=== PATIENT | female | born 1985 | race African-American/Black ===

== ENCOUNTER 2017-03-07 10:38 | Emergency (ER) | payer SELFPAY ==
--- NOTE | 2017-03-07 11:07 | ER Document Report ---
ED Skin Rash/Insect Bite/Abscs - General Chief Complaint: Abscess Stated Complaint: POSSIBLE INFECTION ON ARM Time Seen by Provider: 03/07/17 10:49 Mode of Arrival: Ambulatory Information source: Patient Notes: 31-year-old female presents to ED for abscess to the right arm for the last 4 days. TRAVEL OUTSIDE OF THE [place] IN LAST 30 DAYS: No - HPI Patient complains to provider of: Tender/swollen area - Swollen area that is draining last 2 days. Onset: Other - Swollen for the last 4 days draining for the last 2 days Onset/Duration: Persistent Quality of pain: Pressure Severity: Moderate Pain Level: 4 Skin Character: Abscess Quality of rash: Painful Exacerbated by: Movement Relieved by: Denies Similar symptoms previously: Yes Recently seen / treated by doctor: No - Related Data Allergies/Adverse Reactions: No Known Allergies Allergy (Verified 03/07/17 11:24) Past Medical History - General Information source: Patient - Social History Smoking Status: Current Every Day Smoker Cigarette use (# per day): Yes - 3-4 cig a day Chew tobacco use (# tins/day): No Smoking Education Provided: Yes - less than 2 min Frequency of alcohol use: Occasional Drug Abuse: None Occupation: [employer] Lives with: Family Family History: Arthritis, CVA, Malignancy, Other - MS - Past Medical History Cardiac Medical History: Reports: Hx Hypertension Pulmonary Medical History: Reports: None EENT Medical History: Reports: None Neurological Medical History: Reports: None Endocrine Medical History: Reports: None Renal/ Medical History: Reports: None Malignancy Medical History: Reports: None GI Medical History: Reports: None Musculoskeltal Medical History: Reports None Skin Medical History: Reports Hx Cellulitis, Reports Hx Eczema Psychiatric Medical History: Reports: None Traumatic Medical History: Reports: None Infectious Medical History: Reports: None Past Surgical History: Reports: Hx Section - 3, Hx Cholecystectomy, Hx Tubal Ligation - Immunizations Hx Diphtheria, Pertussis, Tetanus Vaccination: No Review of Systems - Review of Systems Constitutional: No symptoms reported EENT: No symptoms reported Cardiovascular: No symptoms reported Respiratory: No symptoms reported Gastrointestinal: No symptoms reported Genitourinary: No symptoms reported Female Genitourinary: No symptoms reported Musculoskeletal: No symptoms reported Skin: Other - Draining abscess to right arm Hematologic/Lymphatic: No symptoms reported Neurological/Psychological: No symptoms reported -: Yes All other systems reviewed and negative Physical Exam - Vital signs Vitals: Temp Pulse Resp BP Pulse Ox 99.1 F 94 18 148/92 H 100 03/07/17 10:43 03/07/17 10:43 03/07/17 10:43 03/07/17 10:43 03/07/17 10:43 Interpretation: Normal - General General appearance: Appears well, Alert - HEENT Head: Normocephalic, Atraumatic Eyes: Normal Pupils: PERRL - Respiratory Respiratory status: No respiratory distress Chest status: Nontender Breath sounds: Normal Chest palpation: Normal - Cardiovascular Rhythm: Regular Heart sounds: Normal auscultation Murmur: No - Abdominal Inspection: Normal Distension: No distension Bowel sounds: Normal Tenderness: Nontender Organomegaly: No organomegaly - Back Back: Normal, Nontender - Extremities General upper extremity: Normal inspection, Nontender, Normal color, Normal ROM , Normal temperature General lower extremity: Normal inspection, Nontender, Normal color, Normal ROM , Normal temperature, Normal weight bearing. No: Les's sign - Neurological Neuro grossly intact: Yes Cognition: Normal Orientation: AAOx4 Uma Coma Scale Eye Opening: Spontaneous [place] Coma Scale Verbal: Oriented [place] Coma Scale Motor: Obeys Commands [place] Coma Scale Total: 15 Speech: Normal Motor strength normal: LUE, RUE, LLE, RLE Sensory: Normal - Psychological Associated symptoms: Normal affect, Normal mood - Skin Skin Temperature: Warm Skin Moisture: Dry Skin Color: Normal Skin irregularity: Abscess - right upper arm Irregularity with: Swelling, Tenderness, Inflammation, Other - draining Course - Vital Signs Vital signs: Temp Pulse Resp BP Pulse Ox 99.1 F 94 18 148/92 H 100 03/07/17 10:43 03/07/17 10:43 03/07/17 10:43 03/07/17 10:43 03/07/17 10:43 Discharge - Discharge Clinical Impression: Abscess Condition: Stable Disposition: HOME, SELF-CARE Instructions: Family Physicians / Practices Additional Instructions: ABSCESS: You have an abscess (boil). This a pus-forming infection, usually due to staph. Some boils may be left to drain on their own, but most require lancing. From the time the tender lump first appears, it may be three or four days before the abscess is ready to mary. Local heat and rest help at this stage of treatment. An antibiotic may prevent spread of the infection. Once the abscess is opened, packing may be placed into it. This is done so pus is not sealed inside by premature closure of the cavity. The packing will be removed at your follow-up visit or you may be advised to remove it yourself at home. Sometimes this packing must be replaced a few times during healing. The wound will heal with surprisingly little scar. Depending on the size and location of an abscess, healing can take one to four weeks. You may shower and wash the area around the incision site two or three times a day. Antibiotics may be prescribed, but are usually not necessary after an abscess has been drained. If you develop fever, chills, worsening pain, or increasing swelling in the area, call the doctor or return immediately. ORAL NARCOTIC MEDICATION: You have been given a prescription for pain control. This medication is a narcotic. It's best taken with food, as nausea can result if taken on an empty stomach. Don't operate machinery or drive within six hours of taking this medication. Do not combine this medicine with alcohol, or with any medication which can cause sedation (such as cold tablets or sleeping pills) unless you get permission from the physician. Narcotics tend to cause constipation. If possible, drink plenty of fluids and eat a diet high in fiber and fruits. CEPHALEXIN: The antibiotic you've been prescribed is a member of the cephalosporin class. This type of antibiotic covers a wide variety of infections, including those of the skin, lungs, and urinary tract. It's useful for staph infections. This antibiotic is slightly similar to the penicillin family. In rare cases , a person who is allergic to penicillin will also be allergic to this medication. If you have had a severe allergic reaction to penicillin, and have not taken this antibiotic since that time, notify your doctor. Antibiotics which cover many germs ("broad spectrum" antibiotics) are more likely to cause diarrhea or "yeast" infections. Women prone to vaginal yeast problems may suffer an attack after taking this antibiotic. In infants, oral thrush (white spots "stuck" on the cheek) or yeast diaper rash may result. See your doctor if these problems occur. Call at once if you develop itching, hives , shortness of breath, or lightheadedness. Epsom Salt Soaks Soak the wound area in a container of warm epsom salt water. If you can't get the wound area into a bucket or dunn, use a folded towel soaked in the epsom salt solution and apply to the area. Use clean hot tap water (about the temperature of a very warm bath), mixing in about one (1) teaspoon for every pint of water. Two gallon --> 16 teaspoons Epsom Salts One gallon --> 8 teaspoons Epsom Salts Two quarts --> 4 teaspoons Epsom Salts One quart --> 2 teaspoons Epsom Salts Soak the wound for about 20 minutes while gently moving it around in the water. Repeat this four (4) times a day. FOLLOW-UP CARE: Most simple abscesses will not require a follow up visit. If you had packing placed in the abscess, remove it as instructed by the physician. If you have been referred to a physician for follow-up care, call the physicians office for an appointment as you were instructed or within the next two days. If you experience worsening or a significant change in your symptoms, return to the Emergency Department at any time for re-evaluation. Prescriptions: Cephalexin Monohydrate [Keflex 500 mg Capsule] 500 mg PO QID #20 capsule Oxycodone HCl/Acetaminophen [Percocet 5-325 mg Tablet] 1 tab PO TIDP PRN #7 tab PRN Reason: Forms: Elevated Blood Pressure, Smoking Cessation Education, Return to Work
[2017-03-07 11:08] VITALS: BP 148/92
== END 2017-03-07 11:23 | disposition home or self-care (01) ==
LOC: ER 10:38
DX: L02.413 Cutaneous abscess of right upper limb (principal); I10 Essential (primary) hypertension; F17.210 Nicotine dependence, cigarettes, uncomplicated; Z71.6 Tobacco abuse counseling
CPT/HCPCS: 99282

== ENCOUNTER 2017-11-18 10:59 | Emergency (ER) | payer SELFPAY ==
[2017-11-18] MEDS ORDERED: LIDOCAINE 4%/TETRACAINE 0.5%/EPI 0.18% 5 ML TOPICAL SOLN TOP ONE (11:58)
[2017-11-18] MEDS ORDERED: ACETAMINOPHEN 325 MG TABLET PO ONE (11:58)
[2017-11-18] MEDS ORDERED: SULFAMETHOXAZOLE/TRIMETHOPRIM 800-160 MG TABLET PO ONE (11:58)
[2017-11-18] MEDS ORDERED: IBUPROFEN 800 MG TABLET PO ONE (11:58)
--- NOTE | 2017-11-18 12:02 | ER Document Report ---
HPI - HPI Patient complains to provider of: abscess posterior neck Onset: Other - 2 days Onset/Duration: Worse Quality of pain: Throbbing Pain Level: 5 Context: 32 yo female c/o posterior neck swelling worse in 2 days. Hx non mrsa abscess on body. no fever. Associated Symptoms: None Exacerbated by: Movement Relieved by: Denies Similar symptoms previously: No Recently seen / treated by doctor: No - ROS ROS below otherwise negative: Yes Systems Reviewed and Negative: Yes All other systems reviewed and negative - REPRODUCTIVE LMP: 11/07/17 Reproductive: DENIES: : Past Medical History - General Information source: Patient - Social History Smoking Status: Current Every Day Smoker Chew tobacco use (# tins/day): No Frequency of alcohol use: Occasional Drug Abuse: None Lives with: Family Family History: Arthritis, CVA, Malignancy, Other - MS Patient has suicidal ideation: No Patient has homicidal ideation: No - Past Medical History Cardiac Medical History: Reports: Hx Hypertension Renal/ Medical History: Denies: Hx Peritoneal Dialysis Skin Medical History: Reports Hx Cellulitis, Reports Hx Eczema Past Surgical History: Reports: Hx Section - 3, Hx Cholecystectomy, Hx Tubal Ligation - Immunizations Hx Diphtheria, Pertussis, Tetanus Vaccination: No Vertical Provider Document - CONSTITUTIONAL Agree With Documented VS: Yes Exam Limitations: No Limitations General Appearance: No Apparent Distress - INFECTION CONTROL TRAVEL OUTSIDE OF THE [place] IN LAST 30 DAYS: No - HEENT HEENT: Normocephalic - NECK Neck: Supple Notes: posterior neck with fluctuant 1 cm abscess with adjacent induration and lymph nodes. No scalp rash. - RESPIRATORY Respiratory: Breath Sounds Normal, No Respiratory Distress - CARDIOVASCULAR Cardiovascular: Regular Rate, Regular Rhythm - MUSCULOSKELETAL/EXTREMETIES Musculoskeletal/Extremeties: MAEW - NEURO Level of Consciousness: Awake, Alert - DERM Integumentary: Warm, Dry, Abscess Procedures - Incision and Drainage Left Neck Time completed: 13:34 Type: Simple Anesthetic type: 1% Lidocaine mL's of anesthetic: 2 Blade size: 11 I&D procedure: Betadine prep applied, Sterile dressing applied Incision Method: Incision made by scalpel Amount/type of drainage: only blood, no pus, 4mm deep incision Adult Head Front/Back picture: 1 - fluctuant incision with surounding induration/adenopathy Discharge - Discharge Clinical Impression: I and D abscess, Adenopathy Condition: Good Disposition: HOME, SELF-CARE Instructions: Acetaminophen, Anti-Inflammatory Medication ([facility]), Lymphadenopathy ([facility]), Trimethoprim-Sulfa ([facility]), Warm Packs ([facility]) Additional Instructions: warm compress Keep the dressing on for 2 days Remove the dressing after 2 days and shower using antibacterial soap and water to clean the area then put on dry dressing Return to the emergency room if symptoms worsen or you have a fever Prescriptions: Ibuprofen [Motrin 800 mg Tablet] 800 mg PO Q8HP PRN #30 tablet PRN Reason: Sulfamethoxazole/Trimethoprim [Sulfamethoxazole-Tmp Ds Tablet] 1 each PO BID # 14 tablet Forms: Return to Work
[2017-11-18 13:57] VITALS: BP 138/74
== END 2017-11-18 13:59 | disposition home or self-care (01) ==
LOC: ER 10:59
PROC: 0H94XZZ Drainage of Neck Skin, External Approach (ICD-10-PCS; principal; 2017-11-18)
DX: L02.11 Cutaneous abscess of neck (principal); R59.0 Localized enlarged lymph nodes; F17.200 Nicotine dependence, unspecified, uncomplicated; I10 Essential (primary) hypertension; Z90.49 Acquired absence of other specified parts of digestive tract; Z98.51 Tubal ligation status
CPT/HCPCS: 99283; 10060; J3490

== ENCOUNTER 2017-11-22 07:22 | Day surgery (SDC) | payer SELFPAY ==
[2017-11-22] MEDS ORDERED: VANCOMYCIN HCL INJ 1000 MG VIAL IV ONE (07:41)
--- NOTE | 2017-11-22 07:46 | ER Document Report ---
ED General - General Chief Complaint: Abscess Stated Complaint: POSSIBLE ABSCESS Time Seen by Provider: 11/22/17 07:41 Notes: 32-year-old female presents with posterior neck pain, severe limiting motion associated with swelling. She was seen here couple days ago had an incision and drainage with drain fell out, and she states the swelling is worse now. Left lateral neck pain as well. Denies fever chills. TRAVEL OUTSIDE OF THE [place] IN LAST 30 DAYS: No - Related Data Allergies/Adverse Reactions: No Known Allergies Allergy (Verified 11/22/17 07:22) Past Medical History - Social History Smoking Status: Current Every Day Smoker Family History: Arthritis, CVA, Malignancy, Other - MS - Past Medical History Cardiac Medical History: Reports: Hx Hypertension Endocrine Medical History: Denies: Hx Diabetes Mellitus Type 1, Hx Diabetes Mellitus Type 2 Renal/ Medical History: Denies: Hx Peritoneal Dialysis Skin Medical History: Reports Hx Cellulitis, Reports Hx Eczema Past Surgical History: Reports: Hx Section - 3, Hx Cholecystectomy, Hx Tubal Ligation - Immunizations Hx Diphtheria, Pertussis, Tetanus Vaccination: No Review of Systems - Review of Systems Notes: REVIEW OF SYSTEMS GEN: Denies fever, chills, weight loss ENT: Denies sore throat, nasal discharge, ear pain EYES: Denies blurry vision, eye pain, discharge CV: Denies chest pain, palpitations, edema RESP: Denies cough, shortness of breath, wheezing GI: Denies abdominal pain, nausea, vomiting, diarrhea MSK: Denies joint pain/swelling, edema, SKIN: D abscess LYMPH: Denies swollen glands/lymph nodes NEURO: Denies headache, focal weakness or numbness, dizziness PSYCH: Denies depression, suicidal or homicidal ideation PHYSICAL EXAMINATION General: No acute distress, well-nourished Head: Atraumatic, normocephalic ENT: Mouth normal, oropharynx moist, no exudates or tonsillar enlargement Eyes: Conjunctiva normal, pupils equal, lids normal Neck: Swelling and fluctuance in the midline of the upper neck/lower occiput approximately 10 x 10 cm tracking to the left neck. CVS: Normal rate, regular rhythm, no murmurs Resp: No resp distress, equal and normal breath sounds bilaterally GI: Nondistended, soft, no tenderness to palpation, no rebound or guarding Ext: No deformities, no edema, normal range of motion in upper and lower ext Back: No CVA or midline TTP Skin: No rash, warm Lymphatic: Neck lymphadenopathy Neuro: Awake, alert. Face symmetric. GCS 15. Physical Exam - Vital signs Vitals: Temp Pulse Resp BP Pulse Ox 98 F 100 16 143/94 H 100 11/22/17 07:54 11/22/17 07:54 11/22/17 07:54 11/22/17 07:54 11/22/17 07:54 Course - Re-evaluation Re-evalutation: 11/22/17 07:45 Sizable posterior neck abscess. Reactive lymphadenopathy. We will get labs and give vancomycin. N.p.o. for possible OR. Spoke with surgical list at 7:[address] 11/22/17 09:07 Spoke with surgical list. Notified CT is done which shows sizable abscess cavity. Awaiting read. Awaiting labs. Ordered preoperative EKG. 11/22/17 10:09 Spoke with surgery. They are taking the patient to the OR. Labs pending but this would not affect my management. Vancomycin has been given. Pain meds been ordered. - Vital Signs Vital signs: Temp Pulse Resp BP Pulse Ox 98 F 100 16 143/94 H 100 11/22/17 07:54 11/22/17 07:54 11/22/17 07:54 11/22/17 07:54 11/22/17 07:54 - Laboratory Result Diagrams: 11/22/17 09:48 11/22/17 09:48 - Diagnostic Test Radiology reviewed: Image reviewed, Reports reviewed Discharge - Discharge Clinical Impression: Abscess, neck Condition: Fair Disposition: ADMITTED INPATIENT Admitting Provider: Surgicalist Unit Admitted: OR
--- NOTE | 2017-11-22 09:31 | RADIOLOGY REPORT (SQ) ---
EXAM DESCRIPTION: CT SOFT TISSUE NECK WITH COMPLETED DATE/TIME: 11/22/2017 9:03 am REASON FOR STUDY: posterior neck abscess COMPARISON: None. TECHNIQUE: Post IV contrasted scanning from skull base through lung apices with review of bone, soft tissue and lung windows. Reconstructed coronal and sagittal MPR images reviewed. All images stored on PACS. All CT scanners at this facility use dose modulation, iterative reconstruction, and/or weight based d osing when appropriate to reduce radiation dose to as low as reasonably achievable (ALARA). [facility]: Dose Right [facility]: CareDose [facility]: Dose Right [facility]: Teradose 4D [facility]: [place] CONTRAST TYPE AND DOSE: contrast/concentration: Isovue 370.00 mg/ml; Total Contrast Delivered: 74.0 ml; Total Saline Delivered: 40.7 ml RENAL FUNCTION: None required. The patient is less than 50 years old. RADIATION DOSE: CT Rad equipment meets quality standard of care and radiation dose reduction techniq ues were employed. CTDIvol: 20.6 mGy. DLP: 566 mGy-cm. . LIMITATIONS: None. FINDINGS: In the posterior neck soft tissues, subcutaneous fat there is a well-circumscribed periphe ral rim enhancing cystic structure, 7 cm transverse by 3.5 cm craniocaudad by 3 cm AP. This abuts th e superficial fascia of the paraspinal muscles, and likely represents an abscess. Inflamed adjacent superficial lymph nodes are present, just to the right of midline axial image 24, 1 .3 x 0.8 cm in size. A left posterior triangle superficial lymph node is present on axial image 25, 2.1 x 1.2 cm in size. SKULL BASE: Inferior brain parenchyma unremarkable. MAJOR SALIVARY GLANDS: No solid or cystic masses. No inflammatory changes. LYMPHADENOPATHY: Reactive lymph nodes are present adjacent to the abscess in the posterior neck. No other cervical adenopathy. MUCOSAL MASSES OR ASYMMETRY: No mucosal masses or asymmetry. LARYNX/CORDS: No abnormal findings. VASCULAR STRUCTURES: The major vessels are patent. Medial deviation of the carotid bifurcations into the prevascular space on coronal image 37. LUNG APICES: Clear. BONES: Intact. THYROID: Mildly enlarged. No focal nodules PARANASAL SINUSES: Clear. OTHER: No other significant finding. IMPRESSION: Superficial abscess in the posterior neck soft tissues just to the left of midline, 7 x 3.5 x 3 cm in size with adjacent small reactive lymph nodes TECHNICAL DOCUMENTATION: JOB ID: [id number] Quality ID # [id number]: Final reports with documentation of one or more dose reduction techniques (e.g., Au tomated exposure control, adjustment of the mA and/or kV according to patient size, use of iterative reconstruction technique) 2010 [employer]- All Rights Reserved
[2017-11-22] MEDS ORDERED: HYDROMORPHONE HCL INJ/PF 2 MG/ML AMPULE IV ONE (09:53)
--- NOTE | 2017-11-22 10:02 | EKG REPORT ---
SEVERITY:- NORMAL ECG - SINUS RHYTHM : Confirmed by: Rio Morales 22-Nov-2017 10:01:23
[2017-11-22 10:09] LABS: HEMATOCRIT 30.7 % (36.0-47.0); HEMOGLOBIN 9.6 g/dL (12.0-15.5); MEAN CORPUSCULAR HEMOGLOBIN 21.8 pg (27.0-33.4); MEAN CORPUSCULAR HGB CONC 31.1 g/dL (32.0-36.0); MEAN CORPUSCULAR VOLUME 70 fl (80-97); PLATELET COUNT 363 10^3/uL (150-450); RED CELL DISTRIBUTION WIDTH 20.9 % (11.5-14.0); WHITE BLOOD COUNT 8.8 10^3/uL (4.0-10.5)
[2017-11-22 10:14] LABS: ANION GAP 8 (5-19); BLOOD UREA NITROGEN 10 mg/dL (7-20); CARBON DIOXIDE 25 mmol/L (22-30); CHLORIDE 106 mmol/L (98-107); GLUCOSE 128 mg/dL (75-110); POTASSIUM 4.3 mmol/L (3.6-5.0)
[2017-11-22] MEDS ORDERED: GLUCAGON,HUMAN RECOMB 1 MG INJ SUBCUT PRN (10:51)
[2017-11-22] MEDS ORDERED: DEXTROSE 40% GEL 15 GM TUBE PO PRN ×2 (10:51)
[2017-11-22] MEDS ORDERED: POTASSI CL 10 MEQ/D5-1/2NS 1L 10 MEQ/1,000 ML RTUINJ IV PRN (10:51)
[2017-11-22] MEDS ORDERED: DEXTROSE 50%-WATER 25 GM/50 ML DISP.SYRIN IV PRN ×2 (10:51)
--- NOTE | 2017-11-22 10:51 | PDOC H&P ---
History of Present Illness Admission Date/PCP: 11/22/17 07:50 History of Present Illness: CHARLY MILLER is a 32 year old female who presented to the ER with a painful swelling of the posterior neck. She had been here about 3 days ago and had an I& D of the abscess of the posterior neck performed in the ER. However she ahs not improved with increse in size of the swelling. She denies fever. She is not diabetic. Past Medical History Cardiac Medical History: Reports: Hypertension Endocrine Medical History: Denies: Diabetes Mellitus Type 1, Diabetes Mellitus Type 2 Skin Medical History: Reports: Eczema Past Surgical History Past Surgical History: Reports: Section - 3, Cholecystectomy, Tubal Ligation Social History Smoking Status: Current Every Day Smoker Family History Family History: Arthritis, CVA, Malignancy, Other - MS Parental Family History Reviewed: No Children Family History Reviewed: Unknown Sibling(s) Family History Reviewed.: Unknown Medication/Allergy Allergies/Adverse Reactions: No Known Allergies Allergy (Verified 11/22/17 07:22) Review of Systems Constitutional: ABSENT: chills, fever(s), headache(s), weight gain, weight loss Eyes: ABSENT: visual disturbances Ears: ABSENT: hearing changes Cardiovascular: ABSENT: chest pain, dyspnea on exertion, edema, orthropnea, palpitations Respiratory: ABSENT: cough, hemoptysis Gastrointestinal: ABSENT: abdominal pain, constipation, diarrhea, hematemesis, hematochezia, nausea, vomiting Genitourinary: ABSENT: dysuria, hematuria Musculoskeletal: ABSENT: joint swelling Integumentary: PRESENT: as per HPI Neurological: ABSENT: abnormal gait, abnormal speech, confusion, dizziness, focal weakness, syncope Psychiatric: ABSENT: anxiety, depression, homidical ideation, suicidal ideation Endocrine: ABSENT: cold intolerance, heat intolerance, polydipsia, polyuria Physical Exam Vital Signs: Temp Pulse Resp BP Pulse Ox 98.6 F 94 18 135/84 H 100 11/22/17 10:08 11/22/17 10:08 11/22/17 10:08 11/22/17 10:08 11/22/17 10:08 Intake & Output 11/21/17 11/22/17 11/23/17 06:59 06:59 06:59 Weight 127.006 kg General appearance: PRESENT: no acute distress, well-developed, well-nourished Head exam: PRESENT: atraumatic, normocephalic Neck exam: PRESENT: lymphadenopathy, other - 8cm x 4cm x 3cm swelling in the posterior midline neck extending toward the occiput. There is a 0.7cm incision on the dome of it, no active drainage or bleeding. There is erythema and differential warmth. Respiratory exam: PRESENT: clear to auscultation samreen. ABSENT: rales, rhonchi, wheezes Cardiovascular exam: PRESENT: RRR. ABSENT: diastolic murmur, rubs, systolic murmur GI/Abdominal exam: PRESENT: normal bowel sounds, soft. ABSENT: distended, guarding, mass, organolmegaly, rebound, tenderness Neurological exam: PRESENT: alert, awake, oriented to person, oriented to place , oriented to time, oriented to situation, CN II-XII grossly intact. ABSENT: motor sensory deficit Psychiatric exam: PRESENT: appropriate affect, normal mood. ABSENT: homicidal ideation, suicidal ideation Skin exam: PRESENT: other - 8cm x 4cm x 3cm swelling in the posterior midline neck extending toward the occiput. There is a 0.7cm incision on the dome of it, no active drainage or bleeding. There is erythema and differential warmth. Results Laboratory Results: 11/22/17 09:48 11/22/17 09:48 11/22/17 11/22/17 09:48 09:48 WBC 8.8 RBC 4.40 Hgb 9.6 L Hct 30.7 L MCV 70 L MCH 21.8 L MCHC 31.1 L RDW 20.9 H Plt Count 363 Seg Neutrophils % Not Reportable Lymphocytes % Not Reportable Monocytes % Not Reportable Eosinophils % Not Reportable Basophils % Not Reportable Absolute Neutrophils Not Reportable Absolute Lymphocytes Not Reportable Absolute Monocytes Not Reportable Absolute Eosinophils Not Reportable Absolute Basophils Not Reportable Sodium 139.0 Potassium 4.3 Chloride 106 Carbon Dioxide 25 Anion Gap 8 BUN 10 Creatinine 0.57 Est GFR ( Amer) > 60 Est GFR (Non-Af Amer) > 60 Glucose 128 H Calcium 9.0 Impressions: Soft Tissue Neck CT 11/22/17 07:42 IMPRESSION: Superficial abscess in the posterior neck soft tissues just to the left of midline, 7 x 3.5 x 3 cm in size with adjacent small reactive lymph nodes Assessment & Plan - Diagnosis (1) Abscess, neck Plan: For I&D - Plan Summary Plan Summary: The patient will be taken to the OR for I&D of the abscess, Keep NPO Continue antibiotics. Analgesics Possibly discharge home after surgery - teach mother to help with dressings at home.
[2017-11-22] MEDS ORDERED: KETOROLAC TROMETHAMINE INJ/PF 30 MG/1 ML SDV IV PRN (10:58)
[2017-11-22 11:06] LABS: ABSOLUTE LYMPHOCYTES# (MANUAL) 2.1 10^3/uL (0.5-4.7); ABSOLUTE MONOCYTES # (MANUAL) 0.6 10^3/uL (0.1-1.4); BASOPHILS % (MANUAL) 1 % (0-2); EOSINOPHILS % (MANUAL) 0 % (0-6); LYMPHOCYTES % (MANUAL) 24 % (13-45); MONOCYTES % (MANUAL) 7 % (3-13); SEGMENTED NEUTROPHILS % (MAN) 68 % (42-78); TOTAL CELLS COUNTED 100
[2017-11-22 11:07] LABS: ANISOCYTOSIS 2+; HYPOCHROMASIA 1+; PLATELET CLUMPS PRESENT; PLATELET COMMENT ADEQUATE; PLATELET LARGE PRESENT; POLYCHROMASIA 1+; TOXIC GRANULATION SLIGHT
[2017-11-22] MEDS ORDERED: KETAMINE HCL INJ 500 MG/10 ML VIAL ONE (15:30)
[2017-11-22] MEDS ORDERED: BUPIVACAINE HCL 0.5 % INJ/PF 30 ML SDV ONE (15:31)
[2017-11-22] MEDS ORDERED: LIDOCAINE 1% INJ-PF (10 MG/ML) 30 ML SDV ONE (15:31)
[2017-11-22] MEDS ORDERED: FENTANYL CITRATE INJ/PF 100 MCG/2 ML AMPUL ONE ×2 (15:31)
[2017-11-22] MEDS ORDERED: PROPOFOL INJ 200 MG/20 ML VIAL IV ONE (15:32)
[2017-11-22] MEDS ORDERED: MIDAZOLAM 2 MG/2 ML INJ ONE (15:32)
[2017-11-22] MEDS: FENTANYL CITRATE INJ/PF 100 MCG/2 ML AMPUL ONE ×2 (16:40→16:45)
[2017-11-22] MEDS ORDERED: FENTANYL CITRATE INJ/PF 100 MCG/2 ML AMPUL IV PRN (16:49)
[2017-11-22] MEDS ORDERED: MORPHINE SULFATE 10 MG/ML INJ IV PRN (16:49)
[2017-11-22] MEDS ORDERED: DIPHENHYDRAMINE HCL 50 MG/ML VIAL IV PRN (16:49)
[2017-11-22] MEDS ORDERED: PROMETHAZINE HCL INJ 25 MG/1 ML VIAL IV PRN (16:49)
[2017-11-22] MEDS ORDERED: MEPERIDINE HCL/PF INJ 25 MG/1 ML DISP.SYRIN IV PRN (16:49)
--- NOTE | 2017-11-22 17:13 | Operative Report ---
Operative Report DATE OF SURGERY: 11/22/17 PREOPERATIVE DIAGNOSIS: Posterior midline neck abscess POSTOPERATIVE DIAGNOSIS: Posterior midline neck abscess OPERATION: Incision and Drainage of Posterior midline neck abscess SURGEON: Alejandro Acosta ANESTHESIA: Other - IV General Anesthesia with Ketamine TISSUE REMOVED OR ALTERED: abscess posterior neck COMPLICATIONS: none ESTIMATED BLOOD LOSS: 30 ml INTRAOPERATIVE FINDINGS: 7.5cm x 4cm x 3cm loculated abscess in the posterior neck with a 0.8cm transverse incision near the dome; about 80 ml of pus drained. PROCEDURE: The patient was brought to the operating room and left on her bed. She had IV general anesthesia with ketamine administered and was positioned in the left lateral decubitus position. The posterior neck was prepped with chloraprep and sterile drapes laid. A timeout was done. Under sterile aseptic conditions, a 3cm transverse incision was made over the dome of the abscess and developed to the cavity. Loculi were digitally broken. There was a different locus on the right side connected to the larger locus through a tunnel, so a counter incision was made over the dome of that cavity to ensure adequate drainage. The cavities were irrigated with saline; hemostasis was secured with the Bovie and the wounds dressed with half inch iodoform gauze packing, covered with dry 4x4 gauze, ABD and tape to hold. The patient tolerated the procedure well, and was taken to the PACU in stable condition.
--- NOTE | 2017-11-22 17:42 | PDOC DISCHARGE SUMMARY ---
General - Admit/Disc Date/PCP Admission Date/Primary Care Provider: 11/22/17 07:50 Discharge Date: 11/23/17 - Additional Information Resuscitation Status: Full Code Discharge Diet: Regular Discharge Activity: Activity As Tolerated Prescriptions: Docusate Sodium [Colace 100 mg Capsule] 100 mg PO BID #30 capsule Oxycodone HCl/Acetaminophen [Percocet 5-325 mg Tablet] 1 - 2 tab PO ASDIR PRN # 15 tablet PRN Reason: Sulfamethoxazole/Trimethoprim [Bactrim Ds Tablet] 1 each PO BID #20 tablet Home Medications: Docusate Sodium [Colace 100 mg Capsule] 100 mg PO BID #30 capsule 11/22/17 Oxycodone HCl/Acetaminophen [Percocet 5-325 mg Tablet] 1 - 2 tab PO ASDIR PRN # 15 tablet 11/22/17 Sulfamethoxazole/Trimethoprim [Bactrim Ds Tablet] 1 each PO BID #20 tablet 11/22 History of Present Illness History of Present Illness: CHARLY MILLER is a 32 year old female who presented to the ER with a painful swelling of the posterior neck. She had been here about 3 days ago and had an I& D of the abscess of the posterior neck performed in the ER. However she ahs not improved with increse in size of the swelling. She denies fever. She is not diabetic. Hospital Course Hospital Course: The patient had an I&D of the abscess and is discharged home with wound care - iodoform gauze packing - by family. To follow up at the wound care center. Physical Exam Vital Signs: Temp Pulse Resp BP Pulse Ox 98.6 F 87 18 144/83 H 100 11/22/17 17:29 11/22/17 17:29 11/22/17 17:29 11/22/17 17:29 11/22/17 17:29 Intake & Output 11/21/17 11/22/17 11/23/17 06:59 06:59 06:59 Intake Total 500 Output Total 4 Balance 496 Weight 127 kg General appearance: PRESENT: no acute distress, morbidly obese Head exam: PRESENT: normocephalic Eye exam: PRESENT: conjunctiva pink, EOMI, PERRLA. ABSENT: scleral icterus Ear exam: PRESENT: normal external ear exam Neck exam: PRESENT: other - posterior nack abscess I&D wound dressed with gauze , ABD and tape Respiratory exam: PRESENT: clear to auscultation samreen. ABSENT: rales, rhonchi, wheezes Cardiovascular exam: PRESENT: RRR. ABSENT: diastolic murmur, rubs, systolic murmur GI/Abdominal exam: PRESENT: normal bowel sounds, soft. ABSENT: distended, guarding, mass, organolmegaly, rebound, tenderness Neurological exam: PRESENT: alert, awake, oriented to person, oriented to place , oriented to time, oriented to situation, CN II-XII grossly intact. ABSENT: motor sensory deficit Results Laboratory Results: 11/22/17 09:48 11/22/17 09:48 11/22/17 11/22/17 09:48 09:48 WBC 8.8 RBC 4.40 Hgb 9.6 L Hct 30.7 L MCV 70 L MCH 21.8 L MCHC 31.1 L RDW 20.9 H Plt Count 363 Seg Neutrophils % Not Reportable Lymphocytes % Not Reportable Monocytes % Not Reportable Eosinophils % Not Reportable Basophils % Not Reportable Absolute Neutrophils Not Reportable Absolute Lymphocytes Not Reportable Absolute Monocytes Not Reportable Absolute Eosinophils Not Reportable Absolute Basophils Not Reportable Sodium 139.0 Potassium 4.3 Chloride 106 Carbon Dioxide 25 Anion Gap 8 BUN 10 Creatinine 0.57 Est GFR ( Amer) > 60 Est GFR (Non-Af Amer) > 60 Glucose 128 H Calcium 9.0 Impressions: Soft Tissue Neck CT 11/22/17 07:42 IMPRESSION: Superficial abscess in the posterior neck soft tissues just to the left of midline, 7 x 3.5 x 3 cm in size with adjacent small reactive lymph nodes Plan Discharge Plan: discharge home with wound care by family. Time Spent: Less than 30 Minutes
[2017-11-22] MEDS: OXYCODONE-ACETAMINOPHEN 5-325 MG TABLET PO PRN (19:50)
[2017-11-23] MEDS: OXYCODONE-ACETAMINOPHEN 5-325 MG TABLET PO PRN ×2 (01:59→08:03)
[2017-11-23 12:36] VITALS: BP 139/92
== END 2017-11-23 13:30 | disposition home or self-care (01) ==
LOC: ER 07:22 → UNDOADMIN 07:50 → EH 07:50 → 2N 10:30 → OROUT 10:51 → ER 10:51 → UNDODISIN 11-23 13:30 → OROUT 11-23 13:30
PROVIDERS: ATTEND Surgery
PROC: 0H94XZZ Drainage of Neck Skin, External Approach (ICD-10-PCS; principal; 2017-11-22 14:15)
DX: L02.11 Cutaneous abscess of neck (principal); B96.4 Proteus (mirabilis) (morganii) as the cause of diseases classified elsewhere; I10 Essential (primary) hypertension; F17.210 Nicotine dependence, cigarettes, uncomplicated; E66.9 Obesity, unspecified; Z68.42 Body mass index [BMI] 45.0-49.9, adult
CPT/HCPCS: 93005; 99284; 36415; 87070; 87205; 85025; 87075; 87077; 80048; 87186; 70491; 93010; 10060; J2250; J3010; J3490; J1885; J1170; J3480; J2704; J3370; 300

== ENCOUNTER 2019-12-24 20:11 | Emergency (ER) | payer SELFPAY ==
--- NOTE | 2019-12-24 21:30 | ER Document Report ---
ED Medical Screen (RME) - General Chief Complaint: Flu Symptoms Stated Complaint: FLU LIKE SYMPTOMS Notes: Patient is a 34-year-old -[place] female with no significant past medical history presents to the emergency department the chief complaint of flulike symptoms began about 3 days ago. States she is not had any known fever. Reports initial onset of dry cough this progressed to productive. States is associated with widespread body aches, fatigue and recent onset of nausea vomiting and diarrhea. Denies any recent travel or known sick contacts. TRAVEL OUTSIDE OF THE [place] IN LAST 30 DAYS: No - Related Data Allergies/Adverse Reactions: No Known Allergies Allergy (Verified 12/24/19 21:26) Past Medical History - Past Medical History Cardiac Medical History: Reports: Hx Hypertension Endocrine Medical History: Denies: Hx Diabetes Mellitus Type 1, Hx Diabetes Mellitus Type 2 Renal/ Medical History: Denies: Hx Peritoneal Dialysis Skin Medical History: Reports Hx Cellulitis, Reports Hx Eczema Past Surgical History: Reports: Hx Section - 3, Hx Cholecystectomy, Hx Tubal Ligation - Immunizations Hx Diphtheria, Pertussis, Tetanus Vaccination: No Physical Exam - Vital signs Vitals: Temp Pulse Resp BP Pulse Ox 99.4 F 115 H 20 154/105 H 98 12/24/19 20:15 12/24/19 20:15 12/24/19 20:15 12/24/19 20:15 12/24/19 20:15 Course - Vital Signs Vital signs: Temp Pulse Resp BP Pulse Ox 99.4 F 115 H 20 154/105 H 98 12/24/19 20:15 12/24/19 20:15 12/24/19 20:15 12/24/19 20:15 12/24/19 20:15
--- NOTE | 2019-12-24 22:24 | RADIOLOGY REPORT (SQ) ---
Chest 2 view on 12/24/2019 at 10:13 PM CLINICAL INDICATION: Cough COMPARISON: None FINDINGS: The lungs are clear. Cardiac, hilar and mediastinal contours are within normal limits. Pulmonary vascularity is within normal limits. No bony abnormality is noted. IMPRESSION: No active disease.
[2019-12-24 22:59] LABS: A TYPE INFLUENZA AG NEGATIVE (NEGATIVE); B INFLUENZA AG NEGATIVE (NEGATIVE)
[2019-12-25] MEDS ORDERED: ONDANSETRON ODT 4 MG TAB (6 TAB/ER DISP) PO PRN (00:25)
[2019-12-25] MEDS ORDERED: ONDANSETRON 4 MG TAB.RAPDIS PO ONE (00:25)
--- NOTE | 2019-12-25 00:28 | ER Document Report ---
ED General - General Chief Complaint: Flu Symptoms Stated Complaint: FLU LIKE SYMPTOMS Time Seen by Provider: 12/25/19 00:09 Primary Care Provider: [facility] [Provider Group] - Follow up in 3-5 days LAKIA LEBLANC MD [ACTIVE STAFF] - Follow up in 3-5 days Notes: 34-year-old female presents for flulike symptoms since Saturday. Patient states generalized body aches, fatigue, nonproductive cough which has become productive with sputum. Patient states she has been having also nausea/vomiting/diarrhea. Patient has had subjective fever. Denies blood in her stool. TRAVEL OUTSIDE OF THE [place] IN LAST 30 DAYS: No - Related Data Allergies/Adverse Reactions: No Known Allergies Allergy (Verified 12/24/19 21:26) Past Medical History - Social History Smoking Status: Current Every Day Smoker Family History: Arthritis, CVA, Malignancy, Other - MS Patient has suicidal ideation: No Patient has homicidal ideation: No - Past Medical History Cardiac Medical History: Denies: Hx Hypertension Endocrine Medical History: Denies: Hx Diabetes Mellitus Type 1, Hx Diabetes Mellitus Type 2 Renal/ Medical History: Denies: Hx Peritoneal Dialysis Skin Medical History: Reports Hx Cellulitis, Reports Hx Eczema Past Surgical History: Reports: Hx Section - 3, Hx Cholecystectomy, Hx Tubal Ligation - Immunizations Hx Diphtheria, Pertussis, Tetanus Vaccination: No Review of Systems - Review of Systems Notes: Constitutional: Positive for subjective fever. HENT: Positive for cough. Negative for sore throat. Eyes: Negative for visual changes. Cardiovascular: Negative for chest pain. Respiratory: Negative for shortness of breath. Gastrointestinal: Positive for vomiting or diarrhea. Genitourinary: Negative for dysuria. Musculoskeletal: Positive for generalized myalgias. Negative for back pain. Skin: Negative for rash. Neurological: Negative for headaches, weakness or numbness. 10 point ROS negative except as marked above and in HPI. Physical Exam - Vital signs Vitals: Temp Pulse Resp BP Pulse Ox 99.4 F 115 H 20 154/105 H 98 12/24/19 20:15 12/24/19 20:15 12/24/19 20:15 12/24/19 20:15 12/24/19 20:15 - Notes Notes: GENERAL: Well-appearing, well-nourished and in no acute distress. HEAD: Atraumatic, normocephalic. EYES: Extraocular movements intact, sclera anicteric, conjunctiva are normal. NECK: Normal range of motion, supple without lymphadenopathy or JVD. LUNGS: Breath sounds clear to auscultation bilaterally and equal. No wheezes rales or rhonchi. HEART: Regular rate and rhythm without murmurs, rubs or gallops. ABDOMEN: Soft, nontender. No guarding, no rebound. No masses appreciated. EXTREMITIES: Normal range of motion, no pitting or edema. No clubbing or cyanosis. NEUROLOGICAL: Cranial nerves II through XII grossly intact. Normal speech, normal gait. PSYCH: Normal mood, normal affect. SKIN: Warm, Dry, normal turgor, no rashes or lesions noted. Course - Re-evaluation Re-evalutation: 12/25/19 Patient presents with cough, vomiting, diarrhea, and fever at home consistent with a diagnosis of influenza like illness despite negative flu test. Patient is overall well in appearance, in no acute distress. Lung sounds clear. Able to tolerate oral intake without difficulty here in the emergency department. Pt is out of window of time for Tamiflu and this was discussed with pt. CXR negative. At this time will discharge with return precautions and follow-up recommendations. Pt also given script for zofran and Tessalon Perles. Verbal discharge instructions given a the bedside and opportunity for questions given. Medication warnings reviewed. Patient is in agreement with this plan and has verbalized understanding of return precautions and the need for primary care follow-up in the next 24-72 hours. - Vital Signs Vital signs: Temp Pulse Resp BP Pulse Ox 99.2 F 88 16 137/85 H 99 12/24/19 23:26 12/24/19 23:26 12/24/19 23:26 12/24/19 23:26 12/24/19 23:26 Discharge - Discharge Clinical Impression: Influenza-like illness Condition: Stable Disposition: HOME, SELF-CARE Additional Instructions: Please take Zofran as prescribed. Please take Tessalon Perles as prescribed for cough. Your chest x-ray did not show pneumonia and was otherwise normal. Your flu test was negative however your symptoms are most consistent with a flulike illness. Please alternate Tylenol/Motrin every 3 hours like discussed, for example take Tylenol then 3 hours later take Motrin then 3 hours later take Tylenol. Please drink plenty of fluids. Follow-up with your primary care doctor in 3 to 5 days or with 1 of the clinics listed if you do not have 1. Return immediately to ER if you start having any worsening symptoms, including coughing up blood, vomiting not controlled by medication, blood in your stool pain, chest pain, fever not controlled by medication, abdominal pain, or any other symptoms that are concerning to you. Prescriptions: Ondansetron [Zofran Odt 4 mg Tablet] 4 mg PO Q4HP PRN #30 tab.rapdis PRN Reason: Benzonatate [Tessalon Perles 100 mg Capsule] 100 mg PO Q8HP PRN #40 capsule PRN Reason: Forms: Return to Work Referrals: LAKIA LEBLANC MD [ACTIVE STAFF] - Follow up in 3-5 days [facility] [Provider Group] - Follow up in 3-5 days
[2019-12-25 00:39] VITALS: BP 135/80
== END 2019-12-25 00:39 | disposition home or self-care (01) ==
LOC: ER 20:11
DX: J11.1 Influenza due to unidentified influenza virus with other respiratory manifestations (principal); R52 Pain, unspecified; R53.83 Other fatigue; R05 Cough; R11.2 Nausea with vomiting, unspecified; R19.7 Diarrhea, unspecified; F17.200 Nicotine dependence, unspecified, uncomplicated
CPT/HCPCS: 99283; 87804; 71046; S0119